=== PATIENT | male | born 1980 | race Caucasian/White ===

== ENCOUNTER 2020-03-10 11:15 | Emergency (ER) | payer OTHER, BC ==
[~2020-03-10] VITALS: Ht 185.4 cm; Wt 104.5 kg
[~2020-03-10 11:15] MED LIST: OMEP40CA13 PO
[2020-03-10 11:40] LABS: BASOPHILS % (AUTO) 0.2 % (0-1); EOSINOPHILS # (AUTO) 0.1 X10'3 (0-0.9); EOSINOPHILS % (AUTO) 1.1 % (0-6); HEMATOCRIT 43.5 % (42.0-52.0); HEMOGLOBIN 14.6 g/dl (14.0-17.9); LYMPHOCYTES # (AUTO) 1.5 X10'3 (1.1-4.8); MEAN CORPUSCULAR HEMOGLOBIN 29.5 PG (27.0-31.0); MEAN CORPUSCULAR HGB CONC 33.5 g/dL (33.0-36.5); MEAN CORPUSCULAR VOLUME 88.2 FL (78-98); MEAN PLATELET VOLUME 7.9 FL (7.4-10.4); MONOCYTES # (AUTO) 0.8 X10'3 (0-0.9); MONOCYTES % (AUTO) 7.1 % (2-12); NEUTROPHILS # (AUTO) 9.4 X10'3 (1.8-7.7); NEUTROPHILS % (AUTO) 78.6 % (42-75); PLATELET COUNT 215 X10'3 (140-440); RED BLOOD COUNT 4.93 X10'6 (4.70-6.10); RED CELL DISTRIBUTION WIDTH 14.2 % (11.5-14.5); WHITE BLOOD COUNT 11.9 X10'3 (4.5-11.0)
[2020-03-10 11:50] LABS: ALANINE AMINOTRANSFERASE 27 U/L (12-78); ALBUMIN 3.7 G/DL (3.4-5.0); ALBUMIN/GLOBULIN RATIO 1.1 (1.1-1.5); ALKALINE PHOSPHATASE 76 IU/L (46-116); ANION GAP 5 (8-16); ASPARTATE AMINO TRANSFERASE 15 U/L (10-37); BILIRUBIN,TOTAL 0.5 MG/DL (0.1-1.0); BLOOD UREA NITROGEN 9 MG/DL (7-18); BUN/CREATININE RATIO 9.5 (5.4-32.0); CALCIUM 8.8 MG/DL (8.5-10.1); CHLORIDE 106 MMOL/L (99-107); CREATININE 0.95 MG/DL (0.60-1.10); GLUCOSE 99 MG/DL (70-104); POTASSIUM 3.8 MMOL/L (3.5-5.1); SODIUM 138 MMOL/L (135-145); TOTAL CARBON DIOXIDE 27.4 MMOL/L (24-32); eGFR 87 ML/MIN
[2020-03-10] MEDS ORDERED: aspirin 81mg tab.chew PO ONE (13:05)
[2020-03-10] MEDS ORDERED: nitroGLYCERIN 0.4mg SUBLingual tab SL PRN (13:15)
[2020-03-10] MEDS: nitroGLYCERIN 0.4mg SUBLingual tab SL PRN ×2 (13:16→14:09)
[2020-03-10] MEDS ORDERED: morphine 4 MG/ML inj SYRINge IV ONE ×2 (13:50→14:45)
[2020-03-10 15:26] LABS: D-DIMER 2.12 MG/L FEU (0-0.50); PARTIAL THROMBOPLASTIN TIME 28 SECONDS (22-32)
[2020-03-10] MEDS ORDERED: iohexol 350MG/ML 100ml bottle IV ONE (15:41)
[2020-03-10] MEDS ORDERED: LACT1CAP75 PO (17:03)
[2020-03-10] MEDS ORDERED: AMOX500C2 PO (17:03)
[2020-03-10] MEDS ORDERED: AZIT500T9 PO (17:03)
[2020-03-10 17:10] VITALS: BP 111/75
== END 2020-03-10 17:20 | disposition home or self-care (01) ==
LOC: ER 11:15
DX: J18.9 Pneumonia, unspecified organism (principal); R07.1 Chest pain on breathing; R42 Dizziness and giddiness; R05 Cough; F17.200 Nicotine dependence, unspecified, uncomplicated; Z79.2 Long term (current) use of antibiotics; Z79.899 Other long term (current) drug therapy
CPT/HCPCS: 36415; 71045; 71275; 80053; 83880; 84484; 85025; 85379; 85610; 85730; 93005; 96374; 99285; J2270; Q9967

== ENCOUNTER 2021-11-19 14:54 | Emergency (ER) | payer BC, OTHER ==
[~2021-11-19] VITALS: Ht 185.4 cm; Wt 95.5 kg
[~2021-11-19 14:54] MED LIST changes: +AZIT500T9 PO; +LACT1CAP75 PO; -OMEP40CA13 PO; +OMEP40CA21 PO
[2021-11-19 15:22] VITALS: BP 120/65
[2021-11-19] MEDS ORDERED: PRED20TA PO (16:04)
[2021-11-19] MEDS ORDERED: DOXY100C76 PO (16:04)
== END 2021-11-19 16:30 | disposition home or self-care (01) ==
LOC: ER 14:55
DX: J18.9 Pneumonia, unspecified organism (principal); Z20.822 Contact with and (suspected) exposure to COVID-19; J04.0 Acute laryngitis; R05.9 Cough, unspecified; H92.02 Otalgia, left ear; J02.9 Acute pharyngitis, unspecified; R06.02 Shortness of breath; R11.0 Nausea; F41.9 Anxiety disorder, unspecified; F17.200 Nicotine dependence, unspecified, uncomplicated; Z72.89 Other problems related to lifestyle; Z98.890 Other specified postprocedural states; Z79.2 Long term (current) use of antibiotics; Z79.899 Other long term (current) drug therapy
CPT/HCPCS: 36415; 71045; 99284; U0003; U0005; 99285

== ENCOUNTER 2022-05-03 20:26 | Emergency (ER) | payer OTHER ==
[~2022-05-03] VITALS: Ht 185.4 cm; Wt 93.8 kg
[2022-05-03 20:56] VITALS: BP 109/77
[2022-05-03] MEDS ORDERED: dexamethasone sod phosphate 10mg/ml inj PO STA (23:04)
[2022-05-03] MEDS ORDERED: amoxicillin 250mg capsule PO ONE (23:05)
[2022-05-03] MEDS ORDERED: AMOX500C2 PO (23:08)
--- NOTE | 2022-05-03 23:21 | NUR ---
po med x2 given
== END 2022-05-03 23:33 | disposition home or self-care (01) ==
LOC: ER 20:26
DX: J02.0 Streptococcal pharyngitis (principal); H92.03 Otalgia, bilateral; Z87.81 Personal history of (healed) traumatic fracture; Z72.89 Other problems related to lifestyle; Z79.2 Long term (current) use of antibiotics; Z79.899 Other long term (current) drug therapy
CPT/HCPCS: 87880; 99283; J1100

== ENCOUNTER 2025-11-01 14:45 | Emergency (ER) | payer OTHER ==
[2025-11-01 14:55] VITALS: BP 141/82; PULSE 77; TEMP 99; O2SAT 97
--- NOTE | 2025-11-01 14:57 | Physician Documentation ---
History of Present Illness ~ Chief Complaint: Knee Pain Stated Complaint: FALL Time Seen by MD: 15:40 Primary Medical Doctor: YESSENIA Source: patient Mode of Arrival: POV Exam Limitations: no limitations HPI 45-year-old male with left BKA was working outside slipped on wet leaves and twisted and fell on his knee. 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 Musculoskeletal: Reports: see HPI Physical Exam Physical Exam VITALS: Reviewed and as above. GENERAL: Alert, no apparent distress. HEENT: Normocephalic, atraumatic, PERRL, EOMI, dry mucosa, no erythema RESPIRATORY: Lungs clear, normal breath sounds, no respiratory distress. CHEST: No accessory muscle use, no retractions CV: Regular rate, rhythm, no edema, no murmur, No: JVD GI: Soft, non-tender, bowels sounds present, no rebound, guarding, or rigidity BACK: No CVA tenderness, or swelling MUSCULOSKELETAL No deformities, significant edema noted in the left knee, pain with palpation reduced range of motion to the left knee, no erythema noted knees not warm to the touch during examination. SKIN: Warm and dry, no rash NEURO: Oriented x4, No motor or sensory deficit PSYCH: Normal mood and affect, no agitation Progress Results/Orders Results/Orders Completed Orders - SCOTT KANG Hydrocodone/Apap 10/325 (Mountain 10/325mg (11/01/25 16:15) Medications Received in ER Medications (Trade) Dose Ordered Sig/Julio Route PRN Reason Start Time Stop Time Status Last Admin Dose Admin (Mountain 10/325mg tab) 1 tab ONCE ONCE PO 11/01/25 16:15 11/01/25 16:16 DC 11/01/25 16:34 1 TAB Vital Signs 11/01/25 11/01/25 14:55 16:34 Temp 99.0 Pulse 77 Resp 18 18 B/P (MAP) 141/82 Pulse Ox 97 O2 Flow Rate 0 Medical Decision Making Additional information obtaine: other Findings Chief Complaint: Left knee pain following fall History of Present Illness: 45-year-old male with history of left [id number] amputation presented to the emergency department after slipping and falling on wet leaves earlier today while wearing his prosthetic device. Patient reports the prosthetic twisted to the left, causing his knee to twist with an audible pop. Denies prior knee injuries or chronic knee pain. Physical Examination: Significant swelling of the left knee with effusion noted. Neurovascular examination intact. Patient able to perform straight leg raise, indicating intact extensor mechanism. Diagnostic Studies: X-ray imaging of the left knee obtained showing significant joint effusion. No acute fracture, dislocation, or bony abnormality identified. Medical Decision Making: This patient presents with acute traumatic knee injury with significant effusion following a twisting mechanism. Traumatic knee effusions indicate potential serious intra-articular injury including meniscal tear, ligamentous injury (particularly ACL), or occult fracture not visible on plain radiographs. [1] Up to 56% of patients with traumatic effusion may have no visible injury on plain radiographs, and advanced imaging such as MRI may be indicated for further evaluation. [1-2] Arthrocentesis was considered for this painful effusion. While aspiration may provide temporary symptomatic relief, evidence suggests this improvement is short-lived due to early re-accumulation of fluid. [3-4] Given the patient has established follow-up with his primary care provider tomorrow who manages his prosthetic care, and the patient achieved adequate pain control with conservative management in the ED, aspiration was deferred at this time. Pain management was provided with analgesics in the emergency department with good effect. [5-6] The patient will be discharged with a short course of pain medication to bridge until his scheduled appointment tomorrow. Assessment and Plan: Acute traumatic left knee injury with effusion - X-ray negative for fracture, but concern for possible meniscal or ligamentous injury given mechanism and presence of effusion Pain management - Provided in ED with improvement; short-term analgesic prescription provided Disposition - Discharge home with close follow-up with primary care provider tomorrow for re-evaluation and determination of need for advanced imaging (MRI) or orthopedic referral Return precautions - Instructed to return for inability to bear weight, worsening pain or swelling, signs of infection, or neurovascular compromise General Diff Dx:Considerations: Include: Abrasion, Contusion, Fracture, Hematoma, Laceration, Malunion, Neurovascular injury, Open fracture, Sprain, Ulcer, Other Knee Diff Dx:Considerations: Include: Abrasion, Arthritis, Contusion, DJD, Fracture-femur, Fracture-fibula, Fracture-patella, Fracture-tibia, Gout, Hemato ma, Laceration, Meniscus injury, Neurovascular injury, Open fracture, Rheumatoid arthritis, Septic, Sprain, Sprain-MCL, Sprain-LCL, Sprain-ACL, Sprain-PCL, Other Ankle Diff Dx:Considerations: Include: Abrasion, Arthritis, Contusion, DJD, Fracture-metatarsal, Fracture-fibula, Fracture-tarsal, Fracture-tibia, Gout, Hematoma, Laceration, Malunion, Neurovascular injury, Nonunion, Open fracture, Osteomyelitis, Rheumatoid arthritis, Sprain, Septic, Ulcer, Other Foot Diff Dx:Considerations: Include: Abrasion, Arthritis, Cellulitis, Contusion, Dislocation, DJD, Fracture-metatarsal, Fracture-phalynx, Fracture- tarsal, Gout, Hematoma, Ingrown toenail, Laceration, Malunion, Neurovascular injury, Open fracture, Paronychia, Puncture, Rheumatoid, Sprain, Septic, Subungual hematoma, Ulcer, Other Toe Diff Dx:Considerations: Include: Abrasion, Cellulitis, Contusion, Dislocation, Felon, Fracture, Hematoma, Laceration, Neurovascular injury, Open fracture, Paronychia, Subungual hematoma, Other Departure Disposition: 01 HOME / SELF CARE / HOMELESS Impression: Primary Impression: Knee pain Additional Impression: Effusion of knee Condition: Stable Discharge Instructions: Acute Knee Pain, Adult, Knee Effusion Additional Instructions: DISCHARGE INSTRUCTIONS Left Knee Injury Your Diagnosis: You injured your left knee today when you fell and twisted your knee while wearing your prosthetic. X-rays showed swelling in your knee but no broken bones. What to Do at Home: Rest and Activity Limit use of your injured knee for the next few days [1] Avoid activities that cause pain, especially deep bending of the knee [2] You may walk as tolerated, but use crutches if needed for comfort Elevate your leg when sitting or lying down [1] Ice Apply ice to your knee for 20-30 minutes, 3-4 times daily for the first 2-3 days [1] Use a bag of ice and water wrapped in a towel - do not place ice directly on your skin [1] This will help reduce pain and swelling Compression You may use an elastic bandage wrap for comfort if desired [1] Make sure the wrap is snug but not too tight - you should still be able to move your toes and feel normal sensation Pain Management Take your prescribed pain medication as directed You may also use [id number] pain relievers like ibuprofen or acetaminophen as directed IMPORTANT: Follow-Up Appointment You have an appointment with your primary care provider tomorrow Keep this appointment - it is very important Your doctor may recommend additional imaging (MRI) or referral to a specialist [3-4] When to Return to the Emergency Department: Call 911 or return to the emergency department immediately if you develop: Inability to bear any weight on your leg Severe worsening pain not controlled by medication Numbness, tingling, or weakness in your leg or foot [3] Coldness or color changes in your leg or foot Fever, increasing warmth, or redness around your knee (signs of infection) [5] Chest pain or difficulty breathing Referrals: NO PRIMARY CARE PROVIDER (PCP) Prescriptions Hydrocodone Bit/Acetaminophen 5/325 MG (Mountain 5/325 MG) 5 Mg/325 Mg Tablet 1-2 TAB PO Q8H for 3 Days, #18 TAB Prov: SCOTT KANG 11/01/25 Education Educated: Patient Educated regarding: diagnosis, treatment, need for follow up Signature Scribe Signature: A Attestation: Scribed for Scott Kang by CEZAR Carballo . 11/01/25 17:01 DEYSI WHEELER NP Nov 01, 2025 14:57 SCOTT KANG Nov 01, 2025 16:36
--- NOTE | 2025-11-01 15:21 | RADIOLOGY REPORT ---
CLINICAL INDICATION: pain After fall BKA TECHNIQUE: 3 views left DI KNEE, COMP 4 VW MIN COMPARISON: None FINDINGS/IMPRESSION: : Large joint effusion. No osteomyelitis or fracture seen of the stump. No chondrocalcinosis. No joint erosions. Further assessment could be performed with MRI imaging if clinically indicated.
[2025-11-01 16:34] VITALS: RESP 18
[2025-11-01] MEDS: HYDROcodone/acetaminophen 10/325mg tab PO ONE (16:34)
[2025-11-01] MEDS ORDERED: HYDR-3965 PO ×2 (16:52→17:07)
== END 2025-11-01 17:16 | disposition home or self-care (01) ==
LOC: ER 14:46
DX: M25.462 Effusion, left knee (principal); M25.562 Pain in left knee; F41.9 Anxiety disorder, unspecified; Z79.899 Other long term (current) drug therapy; Z72.89 Other problems related to lifestyle; Z98.890 Other specified postprocedural states; W01.0XXA Fall on same level from slipping, tripping and stumbling without subsequent striking against object, initial encounter; Y93.89 Activity, other specified; Y92.89 Other specified places as the place of occurrence of the external cause; Y99.8 Other external cause status
CPT/HCPCS: 73564; 99283; A6449